=== PATIENT | female | born 1970 | race Caucasian/White ===

== ENCOUNTER 2018-07-17 10:01 | Emergency (ER) | payer SELFPAY ==
[2018-07-17] MEDS ORDERED: LORazepam 2 MG/ML INJ ONE ×2 (10:23→23:28)
[2018-07-17] MEDS ORDERED: ONDANSETRON 4 MG/2 ML VIAL ONE (10:23)
[2018-07-17] MEDS ORDERED: LORazepam 2 MG/ML INJ IVP ONE ×2 (10:26→23:29)
[2018-07-17] MEDS ORDERED: NS 1,000 ML IV ONE ×2 (10:28→11:14)
[2018-07-17] MEDS ORDERED: ONDANSETRON 4 MG/2 ML VIAL IVP ONE (10:28)
[2018-07-17] MEDS ORDERED: LORazepam 1 MG TAB PO PRN ×2 (10:31→10:32)
[2018-07-17] MEDS ORDERED: LORazepam 2 MG/ML INJ IVP PRN (10:32)
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
[2018-07-17 10:37] LABS: PLATELET COUNT 261 10^3/uL (150-400)
[2018-07-17] MEDS: LORazepam 2 MG/ML INJ IVP PRN ×2 (10:40→15:54)
[2018-07-18 09:02] VITALS: BP 141/84
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
--- NOTE | 2018-07-18 09:04 | ASMTTCLDSP ---
TLC Discharge Disposition Disposition: Answers: Discharge If Answers: Yes DISCHARGED: Patient/family given suicide hotline info & SAMHSA brochure? Disposition Notes: Notes: Pt stated commitment or ability to keep self safe, denied thoughts of self harm or harm to others. Pt was provided with community resource information and Withdrawal Management. Pt was given local hotline information and SAMHSA brochure After an Attempt and encouraged to follow up with Withdrawal Management. Discharge Concerns/Recommendations: Notes: In consultation with [facility] ED physician, Charles Cuevas MD, Dr. Cuevas concurred that pt does not appear to meet 27-65 criteria requiring psychiatric hospitalization as pt does not appear to be an imminent risk of harm to self/others/gravely disabled due to a mental illness condition. Was patient given the Answers: Not applicable Inpatient Behavioral Health Prohibited Belongings List while in the ED? Date Signed: 07/18/2018 09:04 AM Electronically Signed By:Ousmane Hook
== END 2018-07-18 09:14 | disposition home or self-care (01) ==
DX: F10.220 Alcohol dependence with intoxication, uncomplicated (principal)
CPT/HCPCS: 80305; 96374; G0480; J2060; J2405

== ENCOUNTER 2018-07-19 10:14 | Inpatient (IN) | payer SELFPAY ==
[2018-07-19] MEDS ORDERED: NS 1,000 ML IV ONE ×2 (10:28→14:55)
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
--- NOTE | 2018-07-19 10:39 | CPEKG ---
Test Reason : OPEN Blood Pressure : / mmHG Vent. Rate : 120 BPM Atrial Rate : 121 BPM P-R Int : 152 ms QRS Dur : 093 ms QT Int : 359 ms P-R-T Axes : 077 074 -54 degrees QTc Int : 508 ms Sinus tachycardia Probable left atrial enlargement Probable anteroseptal infarct, old Confirmed by Omero Mondragon ([id number]) on 07/19/2018 10:38:20 AM Referred By: Confirmed By:Omero Mondragon
[2018-07-19 10:43] LABS: PLATELET COUNT 208 10^3/uL (150-400)
[2018-07-19 11:39] LABS: INR 0.96 (0.83-1.16)
[2018-07-19] MEDS ORDERED: LORazepam 2 MG/ML INJ IVP ONE ×2 (11:54→17:25)
[2018-07-19] MEDS ORDERED: LORazepam 2 MG/ML INJ IVP PRN (11:54)
[2018-07-19] MEDS ORDERED: LORazepam 1 MG TAB PO PRN (11:54)
[2018-07-19] MEDS ORDERED: LORazepam 2 MG/ML INJ ONE ×2 (11:55→15:02)
[2018-07-19] MEDS ORDERED: NS 1,000 ML IV SCH (15:00)
--- NOTE | 2018-07-19 15:29 | PDGENHP ---
History and Physical - Chief Complaint AMS - History of Present Illness Patient is a 48-year-old alcoholic female who was seen here few days ago in the ER for ETOH intoxication and withdrawal symptoms. During her previous visit she also had some suicidal thoughts and was evaluated by Mental Health. Eventually she was discharged and given resources. Her son found her passed out in the closet today. He states that she has been drinking constantly since she left the hospital a few days ago and has reported that she wanted to end her life. Patient is minimally responsive and cannot provide a history or answer questions. It is unclear is she has ingested anything. History is obtained from the pt's son and ex . They report an empty Listerine bottle and empty cough syrup bottle Labs shows a anion gap metabolic acidosis the is tachycardic she is intermittently agitated she does not have a tremor K is elevated EKG shows Sinus tachycardia with prolonged QT Salicylates unremarkable. Acetaminophen unremarkable. ETOH [address]: unremarkable PMH: ETOH SocHx: + ETOH FmHx: non contributory History Information - Allergies/Home Medication List Allergies/Adverse Reactions: No Known Allergies Allergy (Verified 07/19/18 10:38) Home Medications: Estradiol 1 mg 05/20/10 [Last Taken Unknown] I have personally reviewed and updated: medical history, social history - Social History Smoking Status: Unknown if ever smoked Alcohol Use: Heavy Review of Systems Review of Systems: ROS: 10pt was reviewed & negative except for what was stated in HPI & below Physical Exam Physical Exam: Temp Pulse Resp BP Pulse Ox 36.1 C 116 H 22 H 118/63 100 07/19/18 13:00 07/19/18 14:00 07/19/18 14:00 07/19/18 14:00 07/19/18 14:00 O2 (L/minute) 2 Constitutional: uncomfortable Eyes: PERRL, other (dilated pupils, reactive) Ears, Nose, Mouth, Throat: moist mucous membranes Cardiovascular: tachycardia, No edema Respiratory: no respiratory distress, no rales or rhonchi, clear to auscultation Gastrointestinal: normoactive bowel sounds, soft, non-tender abdomen, No distension Skin: warm Neurologic: No AAOx3, No facial droop Psychiatric: agitated Lymph, Heme, Immunologic: No petechiae Lab Data & Imaging Review 07/19/18 10:15 07/19/18 10:15 WBC 6.77 10^3/uL (3.80-9.50) 07/19/18 10:15 RBC 4.30 10^6/uL (4.18-5.33) 07/19/18 10:15 Hgb 14.3 g/dL (12.6-16.3) 07/19/18 10:15 Hct 41.9 % (38.0-47.0) 07/19/18 10:15 MCV 97.4 fL (81.5-99.8) 07/19/18 10:15 MCH 33.3 pg (27.9-34.1) 07/19/18 10:15 MCHC 34.1 g/dL (32.4-36.7) 07/19/18 10:15 RDW 13.3 % (11.5-15.2) 07/19/18 10:15 Plt Count 208 10^3/uL (150-400) 07/19/18 10:15 MPV 10.6 fL (8.7-11.7) 07/19/18 10:15 Neut % (Auto) 54.6 % (39.3-74.2) 07/19/18 10:15 Lymph % (Auto) 32.9 % (15.0-45.0) 07/19/18 10:15 [place] % (Auto) 10.0 % (4.5-13.0) 07/19/18 10:15 Eos % (Auto) 0.6 % (0.6-7.6) 07/19/18 10:15 Baso % (Auto) 1.5 % (0.3-1.7) 07/19/18 10:15 Nucleat RBC Rel Count 0.0 % (0.0-0.2) 07/19/18 10:15 Absolute Neuts (auto) 3.69 10^3/uL (1.70-6.50) 07/19/18 10:15 Absolute Lymphs (auto) 2.23 10^3/uL (1.00-3.00) 07/19/18 10:15 Absolute Monos (auto) 0.68 10^3/uL (0.30-0.80) 07/19/18 10:15 Absolute Eos (auto) 0.04 10^3/uL (0.03-0.40) 07/19/18 10:15 Absolute Basos (auto) 0.10 10^3/uL (0.02-0.10) 07/19/18 10:15 Absolute Nucleated RBC 0.00 10^3/uL (0-0.01) 07/19/18 10:15 Immature Gran % 0.4 % (0.0-1.1) 07/19/18 10:15 Immature Gran # 0.03 10^3/uL (0.00-0.10) 07/19/18 10:15 PT 13.0 SEC (12.0-15.0) 07/19/18 10:15 INR 0.96 (0.83-1.16) 07/19/18 10:15 APTT 23.7 SEC (23.0-38.0) 07/19/18 10:15 Sodium 142 mEq/L (135-145) 07/19/18 10:15 Potassium 5.5 mEq/L (3.5-5.2) H 07/19/18 10:15 Chloride 107 mEq/L (97-110) 07/19/18 10:15 Carbon Dioxide 19 mEq/l (22-31) L 07/19/18 10:15 Anion Gap 16 mEq/L (6-14) H 07/19/18 10:15 BUN 6 mg/dL (7-23) L 07/19/18 10:15 Creatinine 0.6 mg/dL (0.6-1.0) 07/19/18 10:15 Estimated GFR > 60 07/19/18 10:15 Glucose 96 mg/dL (70-100) 07/19/18 10:15 Calcium 9.6 mg/dL (8.5-10.4) 07/19/18 10:15 Total Bilirubin 0.4 mg/dL (0.1-1.4) 07/19/18 10:15 Conjugated Bilirubin 0.2 mg/dL (0.0-0.5) 07/19/18 10:15 Unconjugated Bilirubin 0.2 mg/dL (0.0-1.1) 07/19/18 10:15 AST 72 IU/L (14-46) H 07/19/18 10:15 ALT 54 IU/L (9-52) H 07/19/18 10:15 Alkaline Phosphatase 59 IU/L (38-126) 07/19/18 10:15 Total Protein 7.9 g/dL (6.3-8.2) 07/19/18 10:15 Albumin 4.3 g/dL (3.5-5.0) 07/19/18 10:15 Beta HCG, Qual NEGATIVE 07/19/18 10:15 Specimen Hemolysis 140 07/19/18 10:15 Salicylates < 1.0 mg/dL (2.0-20.0) L 07/19/18 10:15 Acetaminophen < 10 mcg/mL (10-30) L 07/19/18 10:15 Ethyl Alcohol 28 mg/dL (0-10) H 07/19/18 10:15 Assessment & Plan Assessment: #Acute Metabolic and Toxic Encephalopathy #Likely Ingestion #Alcoholism, unclear if in active WD #Anion Gap Metabolic Acidosis #Tachycardia #Agitation #Hyperkalemia #Prolonged QT Plan: Ingestion unclear. No e/o of tongue trauma. Has received Ativan 2mg in the ER. She will be given stat IVF now. Recheck labs. Hoping to avoid Benzo's for now pending clinical course but she may need them. Obtain Serum and Urine osmols. Check Lactate. cont Tele Will repeat labs to determine K check Mg Place Arredondo more reccs pending w/u total critical care time spent thus far on this pt with acute metabolic and toxic encephalopathy, agitation, and AG metabolic acidosis likely due to intoxication is 60 minutes.
[2018-07-19] MEDS ORDERED: LR 1,000 ML IV ONE (17:43)
[2018-07-19] MEDS ORDERED: PROTOCOL MAGNESIUM 1 DOSE IV PRN (17:52)
[2018-07-19] MEDS ORDERED: LORazepam 2 MG/ML INJ IVP SCH (18:00)
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
[2018-07-19] MEDS: LORazepam 2 MG/ML INJ IVP PRN ×4 (19:17→23:02)
[2018-07-19] MEDS ORDERED: PROTOCOL POTASSIUM 1 DOSE MISC PRN ×2 (20:58)
[2018-07-19] MEDS ORDERED: PROTOCOL CALCIUM 1 DOSE IV PRN (20:58)
[2018-07-19] MEDS ORDERED: PROTOCOL K PHOSPHATE 1 DOSE IV PRN (20:58)
[2018-07-19] MEDS ORDERED: MAGNESIUM SULF 2 GM/WATER 50 ML IV ONE (21:00)
--- NOTE | 2018-07-19 21:31 | PDMN ---
Medical Necessity Medical necessity: Pt meets inpt criteria per MD order and MCG M-153, Drug Ingestion or Overdose. 48 y/o w/hx alcohol abuse (recently seen in ER for ETOH intox and WD symptoms) presents with AMS, minimally responsive, tachycardic 110- 130's, EKG shows ST w/prolonged QTtachypnic, K elevated at 5.5, magnesium 1.4, Na 3.0, anion gap 16. Possible isopropyl alcohol ingestion. IVF, IV mag sulfate , IV Ativan, ICU monitoring, further lab work, anticipate>2MN for ongoing eval/ management of above.
[2018-07-19] MEDS ORDERED: FLUMAZENIL 0.5 MG/5 ML MDV IVP PRN (22:54)
[2018-07-19] MEDS ORDERED: DEXMEDETOMIDINE HCL 400 MCG in NS 100 ML IV SCH (23:00)
[2018-07-19] MEDS: FAMOTIDINE 20 MG/NACL 50 ML IV SCH (23:13)
[2018-07-19] MEDS: POTASSIUM Cl (KCl) 100 ML IV SCH (23:56)
--- NOTE | 2018-07-19 23:59 | ASMTLCPROG ---
Notes Note: Notes: I met with the family and provided them with resources for Nasir. Date Signed: 07/19/2018 11:58 PM Electronically Signed By:Symone Swenson
[2018-07-20] MEDS: LORazepam 2 MG/ML INJ IVP PRN ×6 (00:03→21:11)
[2018-07-20] MEDS: POTASSIUM Cl (KCl) 100 ML IV SCH ×2 (00:59→02:10)
[2018-07-20] MEDS: LR 1,000 ML IV SCH ×2 (01:41→12:16)
[2018-07-20 04:34] LABS: PLATELET COUNT 152 10^3/uL (150-400)
[2018-07-20 04:41] LABS: INR 1.06 (0.83-1.16)
[2018-07-20] MEDS: LORazepam 2 MG/ML INJ IVP SCH ×2 (06:44→12:17)
[2018-07-20] MEDS ORDERED: LR 1,000 ML IV ONE (08:35)
[2018-07-20] MEDS ORDERED: THIAMINE HCL 500 MG in NS 100 ML IV SCH (09:00)
[2018-07-20] MEDS: FAMOTIDINE 20 MG/NACL 50 ML IV SCH (09:17)
--- NOTE | 2018-07-20 12:13 | HOSPPROG ---
Hospitalist Progress Note Assessment/Plan: #Acute Metabolic and Toxic Encephalopathy, resolving #Likely Isopropyl Alcohol Ingestion. Do not suspect Methanol or Ethylene Glycol ingestion. #Alcoholism with acute alcohol withdrawal #Anion Gap Metabolic Acidosis, resolved #Tachycardia #Agitation #Hyperkalemia, resolved #Hypomagnesemia, replacing #Prolonged QT #FEN: NPO, IVF #DVT proph: Lovenox Plan: Doing better today cont scheduled Ativan and CIWA Thiamine Cont LR Can hopefully start eating today Wean off Precedex if able to Cont tele Replace electrolytes as needed Cont Arredondo for now, can hopefully remove today TLC eval once medically able to total critical care time is 35 mins. D/W nursing and ICU staff. Subjective: follows commands. answers some questions Objective: Vital Signs Temp Pulse Resp BP Pulse Ox 36.5 C 111 H 21 H 100/64 96 07/20/18 04:00 07/20/18 12:00 07/20/18 12:00 07/20/18 12:00 07/20/18 12:00 Laboratory Results 07/20/18 04:00 07/20/18 04:00 07/19/18 07/20/18 07/21/18 05:59 05:59 05:59 Intake Total 3058 Output Total 950 Balance 2108 PT 14.0 SEC (12.0-15.0) 07/20/18 04:00 INR 1.06 (0.83-1.16) 07/20/18 04:00 - Physical Exam Constitutional: no apparent distress Eyes: PERRL Ears, Nose, Mouth, Throat: moist mucous membranes, hearing normal Cardiovascular: regular rate and rhythym, no murmur, rub, or gallop Respiratory: no respiratory distress, no rales or rhonchi Gastrointestinal: normoactive bowel sounds, soft, non-tender abdomen Skin: warm Neurologic: No AAOx3 Psychiatric: encephalopathic, No interacting appropriately Lymph, Heme, Immunologic: No petechiae ICD10 Worksheet Patient Problems: Problems Problem Status Onset Delirium tremens Acute
[2018-07-20] MEDS: ENOXAPARIN 40 MG/0.4 ML SYR SC SCH (12:17)
[2018-07-20] MEDS ORDERED: DIAZEPAM 5 MG/ML 1 ML SYR IVP ONE ×2 (14:30→16:29)
--- NOTE | 2018-07-20 14:31 | ASMTCMCOM ---
CM Note CM Note Notes: In rounds today, concern was expressed by family members that patient had been suicidal for the past week prior to this hospitalization. A TLC eval will be needed when patient is medically clear. TLC was notified to put patient on their board for eval most likely on Monday. CM will follow. Date Signed: 07/20/2018 02:31 PM Electronically Signed By:Gia Webb LCSW
[2018-07-20] MEDS: THIAMINE HCL 500 MG in NS 100 ML IV SCH ×2 (14:44→21:11)
--- NOTE | 2018-07-20 15:04 | PDINTPN ---
Agricultural Equipment Sales Engineer Progress Note Assessment/Plan: ASSESSMENT 48-year-old female with severe depression and alcohol abuse admitted with toxic encephalopathy, alcohol intoxication complicated by withdrawal and possible suicide attempt. Also with isopropyl alcohol ingestion as evidence by high osmolar gap without an anion gap. Given mydriasis, dry mucous membranes and flushed skin may have also ingested anticholinergic or antihistamine like medication. Infection very unlikely # alcohol intoxication # alcohol withdrawal # isopropyl alcohol ingestion # possible suicide attempt # depression # tachycardia # hyperkalemia PLAN # continue CIWA protocol, with additional boluses of Valium as needed # avoid Precedex if possible # empiric high-dose thiamine for Wernicke given encephalopathy # will need psychiatric evaluation once medically cleared # trend electrolytes # monitor for arrhythmias on telemetry # Feeding - advance diet as tolerated # Analgesia APAP # Sedation none # Thromboprophylaxis - SQ hep # Head of bed elevated # Ulcer prophylaxis - not indicated # Glucose SSI # Skin no skin breakdown # Delirium - delirium precautions Labs Reviewed extensively. Significant for his serum osmolar gap of 46, initial anion gap of 17 repeat normal. Initial hyperkalemia resolved after fluids Imaging I personally reviewed imaging and formal radiographic reads 07/19/2018 CT head without acute intracranial pathology Objective: Vital Signs Temp Pulse Resp BP Pulse Ox 36.5 C 119 H 15 118/87 H 99 07/20/18 04:00 07/20/18 14:00 07/20/18 14:00 07/20/18 14:00 07/20/18 14:00 Laboratory Results 07/20/18 04:00 07/20/18 04:00 07/19/18 07/20/18 07/21/18 05:59 05:59 05:59 Intake Total 3058 Output Total 950 Balance 2108 PT 14.0 SEC (12.0-15.0) 07/20/18 04:00 INR 1.06 (0.83-1.16) 07/20/18 04:00 Physical Exam - Physical Exam General Appearance: other (A motion distress, disheveled) EENT: PERRL/EOMI, normal ENT inspection, pharynx normal Neck: non-tender, full range of motion Respiratory: lungs clear, normal breath sounds Cardiac/Chest: normal peripheral pulses, No edema, No gallop, No JVD Abdomen: normal bowel sounds, non-tender Back: Normal inspection Skin: normal color, warm/dry Extremities: normal range of motion, non-tender Neuro/Psych: no motor/sensory deficits, alert, oriented x 3, depressed affect ICD10 Worksheet Patient Problems: Problems Problem Status Onset Delirium tremens Acute
[2018-07-20] MEDS ORDERED: POTASSIUM CL 10 MEQ TAB PO ONE (19:35)
[2018-07-20] MEDS: FAMOTIDINE 20 MG TAB PO SCH (21:12)
[2018-07-21] MEDS: THIAMINE HCL 500 MG in NS 100 ML IV SCH ×3 (06:13→11:24)
[2018-07-21] MEDS: ENOXAPARIN 40 MG/0.4 ML SYR SC SCH (09:01)
[2018-07-21] MEDS: FAMOTIDINE 20 MG TAB PO SCH (09:02)
[2018-07-21] MEDS ORDERED: POTASSIUM CL 10 MEQ TAB PO ONE (09:32)
[2018-07-21] MEDS ORDERED: PNEUMOCOCCAL 0.5ML VACCINE VIAL (PNEUMOVAX 23) IM ONE (09:41)
--- NOTE | 2018-07-21 12:22 | PDINTPN ---
Business Executive Progress Note Assessment/Plan: ASSESSMENT 48-year-old female with severe depression and alcohol abuse admitted with toxic encephalopathy, alcohol intoxication complicated by withdrawal, intentional isopropyl alcohol ingestion and possible suicide attempt. A She is medically cleared but given possible suicide attempt and poor coping skills is high risk for readmission and self-harm # alcohol intoxication # isopropyl alcohol ingestion # alcohol withdrawal # possible suicide attempt # depression # tachycardia # hyperkalemia # poor coping skills PLAN # Stop CIWA protocol # avoid Precedex if possible # Stop high dose thiamine and continue oral M/T/F # trend electrolytes # Feeding - advance diet as tolerated # Analgesia APAP # Sedation none # Thromboprophylaxis - SQ hep # Head of bed elevated # Ulcer prophylaxis - H2 clint for gastritis symptoms # Glucose SSI # Skin no skin breakdown # Delirium - delirium precautions Labs Reviewed extensively. Significant for his serum osmolar gap of 46, initial anion gap of 17 repeat normal. Initial hyperkalemia resolved after fluids Imaging I personally reviewed imaging and formal radiographic reads 07/19/2018 CT head without acute intracranial pathology 07/21/18 12:20 Subjective: Patient still with labile mood yesterday and mild withdrawal. Total of 30 mg of Valium in addition to CIWA protocol was given. Patient received 1, 2 mg dose of Ativan overnight has otherwise been doing well sleeping, appropriate affect. She no longer has signs or symptoms of alcohol withdrawal. She states her atypical emesis related chest pain has improved She denies new headaches chest pain, nausea vomiting, leg swelling Objective: Vital Signs Temp Pulse Resp BP Pulse Ox 36.7 C 89 26 H 125/54 H 97 07/21/18 09:00 07/21/18 11:00 07/21/18 11:00 07/21/18 11:00 07/21/18 11:00 Laboratory Results 07/20/18 04:00 07/21/18 06:07 07/20/18 07/21/18 07/22/18 05:59 05:59 05:59 Intake Total 3058 3049 Output Total 950 3050 Balance 2108 -1 PT 14.0 SEC (12.0-15.0) 07/20/18 04:00 INR 1.06 (0.83-1.16) 07/20/18 04:00 Physical Exam - Physical Exam General Appearance: alert, no apparent distress EENT: PERRL/EOMI, normal ENT inspection Neck: non-tender, full range of motion Respiratory: chest non-tender, lungs clear, normal breath sounds Cardiac/Chest: normal peripheral pulses, regular rate, rhythm, No edema Abdomen: normal bowel sounds, non-tender Pelvic Exam: deferred Skin: normal color, warm/dry Extremities: non-tender, normal inspection, normal capillary refill Neuro/Psych: no motor/sensory deficits, alert, normal mood/affect ICD10 Worksheet Patient Problems: Problems Problem Status Onset Delirium tremens Acute
[2018-07-21 16:10] VITALS: BP 124/83
--- NOTE | 2018-07-21 17:18 | ASMTTCLDSP ---
TLC Discharge Disposition Disposition: Answers: Discharge Disposition Notes: Notes: In consultation with [facility] ICU physician, Scott Osborn MD, and on-call psychiatrist, Nicho Reich MD, both concurred that pt does not appear to meet 27-65 criteria requiring psychiatric hospitalization as pt does not appear to be an imminent risk of harm to self due to a mental illness condition. Discharge Concerns/Recommendations: Notes: Pt's family agreed to provide consistent supervision over the next 72 hours as well as helping the pt get into an substance abuse treatment program. PT also agreed to get a sponsor in and follow up with a therapist (especially if no beds are immediate availabe at [facility]). Pt's family was also provided [facility] and [facility] options. Pt continues to deny that this was a suicide attempt and continues to report that she was trying to drink and didn't realize that she couldn't drink this kind of alcohol. Date Signed: 07/21/2018 05:17 PM Electronically Signed By:Jacques Chicas
--- NOTE | 2018-07-21 17:31 | PDDCSUM ---
Discharge Summary Discharge Summary: This is a 48 yo female who was admitted with acute metabolic and toxic encephalopathy due to ETOH ingestion and rubbing alcohol ingestion. She was admitted into the ICU. W/U revealed rubbing alcohol intoxication. She was provided appropriate care. Once medically stable and not needing further withdrawal medications, a psychiatric evaluation was obtained. The pt's family endorses that the pt has been having SI although the pt denies. The pt was evaluated by our TLC team in conjunction with Dr. Reich our psychiatrist and after evaluation she was felt not to be a risk for self harm. Further she continued to deny suicidal ideations or suicide attempt. Family agrees to provide supervision over the next 72 hours and in addition there is a plan for substance abuse treatment admission which the family will facilitate as well as obtaining a AA sponsor. As the pt is medically stable, has been cleared by psychiatry, and wants discharge, she is being discharged. In addition to the substance abuse treatment admission, the pt is encouraged to f/u with her PCP next week. DDX #Acute Metabolic and Toxic Encephalopathy, resolved #Likely Isopropyl Alcohol Ingestion. Do not suspect Methanol or Ethylene Glycol ingestion. #Alcoholism with acute alcohol withdrawal #Anion Gap Metabolic Acidosis, resolved #Tachycardia, resolved #Agitation, resolved #Hyperkalemia, resolved #Hypomagnesemia, replacing #Prolonged QT Exam: NAD AAOX3 RRR CTA B S/NT/ND NO RESTING TREMOR OR AGITATION NO SI, NO HI MEDS: SEE MED REC F/U: PER ABOVE TOTAL TIME SPENT ON D/C IS 45 MINS
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
[2018-07-22] MEDS ORDERED: THIAMINE HCL 100 MG TAB PO SCH (09:00)
== END 2018-07-21 18:00 | disposition home or self-care (01) | DRG 917 ==
LOC: EDUNIT# → F2N 12:52 → OBSVTOIN 12:56
PROVIDERS: ADMIT Family Medicine; ATTEND Family Medicine
DX: T51.2X4A Toxic effect of 2-Propanol, undetermined, initial encounter (principal); F10.229 Alcohol dependence with intoxication, unspecified; F10.239 Alcohol dependence with withdrawal, unspecified; G93.41 Metabolic encephalopathy; Z23 Encounter for immunization; E87.5 Hyperkalemia; E83.41 Hypermagnesemia; F32.9 Major depressive disorder, single episode, unspecified; E87.2 Acidosis; I45.81 Long QT syndrome
CPT/HCPCS: 80307; 82693-90; 84600-90; 92523-GN; 92610-GN; 96374; G0008; G0009; G0480; J1650; J2060; J2270; J3360; J3411; J3475; J3480